=== PATIENT | female | born 1970 | race African-American/Black ===

== ENCOUNTER 2024-10-16 09:18 | Emergency (ER) | payer MEDICARE ==
[2024-10-16] MEDS ORDERED: Tetracaine 0.5% PF 4 ML BOT ONE (09:28)
[2024-10-16] MEDS ORDERED: Fluorescein Opthalmic Strip ONE (09:29)
== END 2024-10-16 09:40 | disposition home or self-care (01) ==
LOC: BURERS 09:18
DX: S05.01XA Injury of conjunctiva and corneal abrasion without foreign body, right eye, initial encounter (principal); R07.9 Chest pain, unspecified; E11.9 Type 2 diabetes mellitus without complications; I10 Essential (primary) hypertension; X58.XXXA Exposure to other specified factors, initial encounter
CPT/HCPCS: 93005; 99283